=== PATIENT | male | born 1985 | race Caucasian/White ===

== ENCOUNTER 2024-11-04 22:32 | Inpatient (IN) | payer BC ==
[~2024-11-04] VITALS: Ht 177.8 cm; Wt 142.4 kg
[2024-11-04 22:40] VITALS: O2SAT 98
[2024-11-04 23:10] LABS: PLATELET 201 x1000/uL (130-400); RED BLOOD CELL COUNT 5.42 mill/uL (4.7-6.1); RED CELL DISTRIBUTION WIDTH 13.3 % (11.6-14.6)
[2024-11-04 23:27] LABS: CREATININE 1.2 mg/dL (0.6-1.3); UREA NITROGEN BLOOD 14 mg/dL (9-23)
[2024-11-04 23:28] LABS: TROPONIN I HIGH SENSITIVITY < 4 ng/L (3.0-53)
[2024-11-05] VITALS: BP 115/65; PULSE 66; RESP 20; TEMP 36.3; O2SAT 96
[2024-11-05 01:30] VITALS: BP 115/65; PULSE 60; RESP 20; TEMP 36.4
[2024-11-05 01:37] LABS: TROPONIN I HIGH SENSITIVITY 4 ng/L (3.0-53)
[2024-11-05] MEDS ORDERED: GABA-290 PO (03:09)
[2024-11-05 04:00] VITALS: BP 105/62; PULSE 60; RESP 20; TEMP 36.2; O2SAT 98
[2024-11-05] MEDS ORDERED: IPRATROPIUM/ALBUTEROL 0.5-3(2.5)MG/3ML NEB HHN PRN (07:00)
[2024-11-05] MEDS ORDERED: CLONIDINE 0.1MG TABLET PO PRN (07:00)
[2024-11-05] MEDS ORDERED: ONDANSETRON HCL 4MG/2ML INJ IV PRN (07:00)
[2024-11-05] MEDS ORDERED: ACETAMINOPHEN 325MG TABLET PO PRN ×2 (07:00)
[2024-11-05] MEDS ORDERED: GUAIFENESIN 200MG/10ML SUGAR FREE UDC PO PRN (07:00)
[2024-11-05 08:00] VITALS: BP 129/82; PULSE 98; RESP 18; TEMP 36.6; O2SAT 98
[2024-11-05] MEDS: GABAPENTIN 300MG CAPSULE PO SCH (08:52)
[2024-11-05 12:00] VITALS: BP 123/73; PULSE 56; RESP 18; TEMP 36.3; O2SAT 98
== END 2024-11-05 16:20 | disposition left against medical advice (07) | DRG 309 ==
LOC: ER 22:32 → 7WST 11-05 00:27 → EDBEDREQ 11-05 00:29 → EDBEDREQDT 11-05 00:29 → EDBEDREQTM 11-05 00:29 → ENRESERV 11-05 00:53
PROVIDERS: ADMIT Internal Medicine; ATTEND Internal Medicine
DX: I49.9 Cardiac arrhythmia, unspecified (principal); Z68.42 Body mass index [BMI] 45.0-49.9, adult; R00.2 Palpitations; E66.9 Obesity, unspecified; R73.9 Hyperglycemia, unspecified; G89.29 Other chronic pain; Z53.29 Procedure and treatment not carried out because of patient's decision for other reasons; M54.9 Dorsalgia, unspecified; R55 Syncope and collapse
CPT/HCPCS: 36415; 71045; 80048; 83880; 84484; 85027; 93005; 99285